=== PATIENT | male | born 1955 | race African-American/Black ===

== ENCOUNTER 2020-12-05 09:51 | Emergency (ER) | payer OTHER ==
[~2020-12-05] VITALS: Ht 180.3 cm; Wt 99.8 kg
[2020-12-05] MEDS ORDERED: PREDNISONE 20 M20 MG PO (10:27)
[2020-12-05 10:41] VITALS: BP 154/107
== END 2020-12-05 10:41 | disposition home or self-care (01) ==
LOC: ER 09:51
DX: R21 Rash and other nonspecific skin eruption (principal); I10 Essential (primary) hypertension